=== PATIENT | female | born 1950 | race Caucasian/White ===

== ENCOUNTER → 2021-11-19 | Outpatient (CLI) | payer MEDICARE, OTHER ==
[~2021-11-19] MED LIST: ATORVASTATIN CA40 MG PO; BUSPIRONE HCL7.5 MG PO; CALCIUM WITH VITD PO; CYANOCOBAL1000 MCG/1 INJ; GLIPIZIDE ER10 MG PO; KLONOPIN0.5 MG PO; LIDOCAINE PAIN1 EACH TP; LISINOPRIL10 MG PO; MOBIC15 MG PO; NAPROXEN250 MG PO; ROBAXIN 750 MG750 MG PO; ULTRAM50 MG PO; VITAMIN B-1100 M1 PO; VITAMIN C 500500 MG PO; VITAMIN D PO; ZOFRAN ODT 4 MG4 MG PO; [UNRECOGNIZED DRUG - OTHER] PO
[2021-11-19 16:06] LABS: BUN/CREATININE RATIO 28 (0-10)
== END ==
LOC: LAB 14:33
PROVIDERS: Orthopaedic Surgery
DX: Z01.812 Encounter for preprocedural laboratory examination (principal); M17.12 Unilateral primary osteoarthritis, left knee; E11.9 Type 2 diabetes mellitus without complications; I10 Essential (primary) hypertension
CPT/HCPCS: 36415; 80048; 86850; 86900; 86901

== ENCOUNTER 2021-11-20 06:48 | Day surgery (SDC) | payer MEDICARE, OTHER ==
[~2021-11-20] VITALS: Ht 154.9 cm; Wt 69.9 kg
[~2021-11-20 06:48] MED LIST changes: -ULTRAM50 MG PO
[2021-11-20] MEDS ORDERED: ULTRAM50 MG PO (16:14)
[2021-11-21 06:49] LABS: HEMOGLOBIN 11.9 gm/dl (12.3-15.3); RED BLOOD COUNT 3.81 M/UL (4.00-5.10); WHITE BLOOD COUNT 16.2 K/UL (4.5-11.0)
[2021-11-21 07:01] LABS: BUN/CREATININE RATIO 31 (0-10)
[2021-11-22 07:35] LABS: HEMOGLOBIN 11.3 gm/dl (12.3-15.3); RED BLOOD COUNT 3.63 M/UL (4.00-5.10)
[2021-11-22 07:44] LABS: WHITE BLOOD COUNT 11.6 K/UL (4.5-11.0)
[2021-11-22 08:10] LABS: BUN/CREATININE RATIO 27 (0-10)
[2021-11-22] MEDS ORDERED: ASPIRIN EC81 MG PO (10:58)
[2021-11-22] MEDS ORDERED: PERCOCET 7.5-31 EACH PO (11:01)
== END 2021-11-22 18:08 | disposition home or self-care (01) ==
LOC: M/S 06:48 → OR 06:48 → EDSTATUS 07:30 → M/S 17:18 → OR 11-22 18:08
PROVIDERS: Orthopaedic Surgery
DX: M17.12 Unilateral primary osteoarthritis, left knee (principal); M21.262 Flexion deformity, left knee; I10 Essential (primary) hypertension; C44.90 Unspecified malignant neoplasm of skin, unspecified; E78.5 Hyperlipidemia, unspecified; J18.9 Pneumonia, unspecified organism; K21.9 Gastro-esophageal reflux disease without esophagitis; F41.9 Anxiety disorder, unspecified; Z20.822 Contact with and (suspected) exposure to COVID-19; Z88.0 Allergy status to penicillin; Z88.5 Allergy status to narcotic agent; Z79.1 Long term (current) use of non-steroidal anti-inflammatories (NSAID); Z79.899 Other long term (current) drug therapy
CPT/HCPCS: 72170; 73560; 80048; 82962; 85025; 97110-GP-CQ; 97116-GP-CQ; 97161; 97166; 97535; C1776; J0171; J0690; J1100; J1170; J2270; J2405; J2704; J2795; J3010; J3370; J7030; J7120; U0002

== ENCOUNTER → 2022-01-27 | Day surgery (SDC) | payer MEDICARE, OTHER ==
[~2022-01-27] MED LIST changes: +ASPIRIN EC81 MG PO; +PERCOCET 5/325 T1 EA PO; +PERCOCET 7.5-31 EACH PO; +TYLENOL EXTRA500 MG PO; +ULTRAM50 MG PO
== END | disposition home or self-care (01) ==
LOC: OR 06:32 → EDSTATUS 13:00
DX: M24.662 Ankylosis, left knee (principal); Z96.652 Presence of left artificial knee joint; Z20.822 Contact with and (suspected) exposure to COVID-19; I10 Essential (primary) hypertension; E78.5 Hyperlipidemia, unspecified; J44.9 Chronic obstructive pulmonary disease, unspecified; K21.9 Gastro-esophageal reflux disease without esophagitis; M19.90 Unspecified osteoarthritis, unspecified site; E11.9 Type 2 diabetes mellitus without complications; Z85.828 Personal history of other malignant neoplasm of skin; Z88.0 Allergy status to penicillin; Z88.5 Allergy status to narcotic agent; Z79.891 Long term (current) use of opiate analgesic; Z79.899 Other long term (current) drug therapy
CPT/HCPCS: 73560; 76000; J0171; J0735; J1885; J2270; J2274; J2704; J2795; J7120; U0002